=== PATIENT | female | born 1985 | race Caucasian/White ===

== ENCOUNTER 2016-07-25 12:09 | Inpatient (IN) | payer SELFPAY ==
[~2016-07-25] VITALS: Ht 162.6 cm; Wt 66.8 kg
[2016-07-25 14:38] LABS: BASOPHILS 0.2 % (0-2); EOSINOPHILS 0.6 % (0-7); HEMATOCRIT 34.9 % (36.0-48.0); HEMOGLOBIN 11.8 g/dL (12-16); IMMATURE GRANULOCYTES 0.5 % (0-5); LYMPHOCYTES 12.1 % (15-50); MCH 29.3 pg (26.0-34.0); MCHC 33.8 g/dL (31.0-37.0); MCV 86.6 fL (80.0-100.0); MEAN PLATELET VOLUME 9.9 fL (7.4-10.4); MONOCYTES 5.1 % (2-11); NEUTROPHILS 81.5 % (40-80); RBC 4.03 10x6/uL (4.00-5.40); RDW 12.2 % (11.5-14.5); WBC 10.8 10x3/uL (4.8-10.8)
[2016-07-25 14:39] LABS: PLATELET COUNT 334 10x3/uL (130-400)
[2016-07-25 15:25] LABS: ALBUMIN 3.1 g/dL (3.4-5.0); ALKALINE PHOSPHATASE 60 U/L (46-116); ALT (SGPT) 24 U/L (10-68); CALC OSMOLALITY 286 mosm/kg (275-300); CALCIUM 8.8 mg/dL (8.5-10.1); CARBON DIOXIDE 29.6 mmol/L (21.0-32.0); CHLORIDE - SERUM 105 mmol/L (98-107); CREATININE - SERUM 0.7 mg/dL (0.6-1.3); GLUCOSE 102 mg/dL (74-106); POTASSIUM - SERUM 3.2 mmol/L (3.5-5.1); SODIUM 144 mmol/L (136-145); UREA NITROGEN 12 mg/dL (7-18); eGFR NON AFRICAN AMERICAN > 90 mL/min (90-120)
--- NOTE | 2016-07-25 19:45 | NUR ---
PATIENT SITTING UP IN BED EATTING FOOD WITH A FRIEND. NON-PRODUCTIVE COUGH NOTED WITH 6/10 STABBING PAIN TO HER LEFT LOWER LOBE. IBU GIVEN AND TALKED ABOUT PAIN MANAGEMENT.
[2016-07-25 20:00] VITALS: BP 97/67
[2016-07-26] VITALS (7 sets, daily range): BP systolic 94–107; BP diastolic 48–68; Ht 162.6 cm; Wt 66.8 kg
--- NOTE | 2016-07-26 05:25 | NUR ---
PATIENT STABLE THROUGHOUT THE SHIFT WITH MODERATE TO SEVER PAIN AROUND HER LEFT LOWER LOBE. PATIENT IS AMBULATORY AND A&Ox3. NEEDS WERE MET THROUGHOUT THE NIGHT. SHE DID REQUEST SOMETHING MORE FOR PAIN CONTROL. IBU AND APAP WORKS DECENTLY WHEN SHE GETS IT CONTINOUSLY.
[2016-07-26 05:51] LABS: BASOPHILS 0.1 % (0-2); EOSINOPHILS 0 % (0-7); HEMOGLOBIN 10.9 g/dL (12-16); IMMATURE GRANULOCYTES 0.4 % (0-5); LYMPHOCYTES 8.1 % (15-50); MCH 28.7 pg (26.0-34.0); MCV 86.8 fL (80.0-100.0); NEUTROPHILS 90.4 % (40-80); PLATELET COUNT 319 10x3/uL (130-400); RDW 12.3 % (11.5-14.5); WBC 7.8 10x3/uL (4.8-10.8)
[2016-07-26 06:07] LABS: CALCIUM 8.6 mg/dL (8.5-10.1); CARBON DIOXIDE 28.4 mmol/L (21.0-32.0); CHLORIDE - SERUM 106 mmol/L (98-107); POTASSIUM - SERUM 3.5 mmol/L (3.5-5.1); SODIUM 140 mmol/L (136-145); UREA NITROGEN 10 mg/dL (7-18)
[2016-07-26 06:08] LABS: CALC OSMOLALITY 284 mosm/kg (275-300); CREATININE - SERUM 0.5 mg/dL (0.6-1.3); GLUCOSE 229 mg/dL (74-106); eGFR NON AFRICAN AMERICAN > 90 mL/min (90-120)
--- NOTE | 2016-07-26 07:10 | NUR ---
REPORT RECEIVED FROM BANDOLEER PACKER NURSE. CALL LIGHT IN REACH.
[2016-07-26] MEDS ORDERED: MULTI-DAY VITAM1 TAB PO (08:44)
[2016-07-26] MEDS ORDERED: PROBIOTIC1 EAC1 PO (08:44)
--- NOTE | 2016-07-26 08:45 | NUR ---
ASSESSMENT COMPLETED. AM MEDS ADMINISTERED. MED LIST UPDATED, PHARMACY OBTAINED, AND PASSWORD OBTAINED AND PLACED IN COMPUTER. SCDs APPLIED TO BLE. CALL LIGHT IN REACH. WILL CONTINUE WITH PLAN OF CARE.
--- NOTE | 2016-07-26 08:48 | NUR ---
IBUPROFEN PO PER C/O ABDOMINAL PAIN. [place] HAT PLACED IN BR FOR MEASUREMENT OF URINE.
--- NOTE | 2016-07-26 10:45 | NUR ---
SOLUMEDROL SIVP PER ORDER. STATES "I AM FINE" WHEN ASKED ABOUT PAIN.
--- NOTE | 2016-07-26 12:50 | NUR ---
RESTING WITH EYES CLOSED. RESP EVEN AND UNLABORED. CALL LIGHT IN REACH.
--- NOTE | 2016-07-26 13:48 | NUR ---
RESPIRATORY THERAPIST CAME TO ME AND SAID THAT THE PATIENT ASKED IF SHE COULD HAVE SOMETHING STRONGER THAN TYLENOL OR IBUPROFEN. SPOKE WITH DR. DOWNEY. NEW ORDERS RECEIVED.
--- NOTE | 2016-07-26 15:02 | NUR ---
GARRETTCO PO PER C/O PAIN OF 10. IN ROOM UPSET BECAUSE PATIENT WAS HURTING. EXPLAINED TO PATIENT AND THAT I HAD TO CALL THE DOCTOR FIRST AND GET THE ORDER. VERBALIZED UNDERSTANDING.
--- NOTE | 2016-07-26 16:08 | NUR ---
PATIENT ALERT IN BED. NO SIGNS OF DISTRESS NOTED. RATES PAIN 2/10. DENIES NEEDS. BED IN LOW POSITION. CALL LIGHT IN REACH.
--- NOTE | 2016-07-26 16:12 | NUR ---
DELMER INITIATED PER ORDER. STATES PAIN HAS DECREASED TO A 2. CALL LIGHT IN REACH.
--- NOTE | 2016-07-26 18:56 | NUR ---
AMBULATING IN HALLWAY ADLIB. NO OTHER CHANGES IN INITIAL ASSESSMENT. WILL CONTINUE WITH PLAN OF CARE.
--- NOTE | 2016-07-26 19:22 | NUR ---
BACK IN ROOM AT THIS TIME. NORCO PO PER PAIN. SOLUMEDROL IVP. BREATHING TX ALSO GOING AT THIS TIME. AT BEDSIDE. CALL LIGHT IN REACH.
--- NOTE | 2016-07-26 20:24 | NUR ---
PATIENT LAYING IN BED WITH . PAIN IS DECREASING SINCE GETTING THE NORCO. PAIN MEDICATION WAS DISCUSSED WITH BOTH OF THEM. NO OTHER NEEDS NOTED AT THIS TIME. BED IN LOWEST LOCKED POSITION, HOB FLAT, CALL LIGHT WITHIN REACH, SCD's OFF AT THIS TIME.
--- NOTE | 2016-07-27 00:19 | NUR ---
PATIENT RESTING WITH EYES CLOSED AND NO VISIBLE SIGNS OF DISTRESS. BED IN LOWEST POSITION AND CALL LIGHT WITHIN REACH.
[2016-07-27 04:00] VITALS: BP 117/51
[2016-07-27 07:44] VITALS: BP 108/65
--- NOTE | 2016-07-27 08:21 | NUR ---
PT AOX4 RESP EVEN AND NONLABORED PT DENIES NEEDS AT THIS TIME IV TO LEFT HAND PATENT AND INTACT SRX2 BED AT LOWEST POSITION CALL LIGHT WITHIN REACH WILL CONTINUE TO MONITOR
[2016-07-27] MEDS ORDERED: LEVAQUIN500 MG PO (10:44)
--- NOTE | 2016-07-27 12:20 | NUR ---
IV DISCONTINUED TO LEFT HAND WITH CATHETER INTACT. DISCHARGE INSTRUCTIONS AND PRESCRIPTION FOR ANTIBIOTICS GIVEN TO PATIENT AT THIS TIME
--- NOTE | 2016-07-27 12:23 | NUR ---
PT TAKEN TO PRIVATE VEHICLE VIA WHEELCHAIR AT THIS TIME
== END 2016-07-27 12:24 | disposition home or self-care (01) | DRG 195 ==
LOC: D.ER 12:09 → D.MS 16:35
PROVIDERS: Physician Assistant; ADMIT Family Medicine
DX: J18.9 Pneumonia, unspecified organism (principal); R09.1 Pleurisy; E87.6 Hypokalemia; E88.09 Other disorders of plasma-protein metabolism, not elsewhere classified; D64.9 Anemia, unspecified